=== PATIENT | male | born 1940 | race Caucasian/White ===

== ENCOUNTER 2022-03-25 16:34 | Observation (INO) | payer MEDICARE ==
[2022-03-25] MEDS ORDERED: Fentanyl 100 MCG/2 ML VIAL ONE ×2 (16:45→20:17)
[2022-03-25 17:14] LABS: #Eosinphils 0.1 thou/uL (0.0-0.7); #Monocytes 0.6 thou/uL (0.11-0.59); #Neutrophils 13.1 thou/uL (1.40-6.50); %Basophils 0.2 % (0.0-1.0); %Eosinophils 0.6 % (0.0-10.0); %Lymphocytes 6.4 % (21.0-51.0); %Monocytes 4.1 % (0.0-10.0); %Neutrophils 88.7 % (42.0-75.0); Hemoglobin 13.8 g/dL (14.0-18.0); Mean Corpuscular HGB CONC 33.6 g/dL (32.0-36.0); Mean Corpuscular Hemoglobin 33.6 pg (27.0-31.0); Mean Platelet Volume 7.5 fL (7.4-10.4); Platelet Count 242 thou/uL (130-400); Red Blood Cell (RBC) Count 4.11 mill/uL (4.70-6.10); White Blood Cell (WBC) Count 14.8 thou/uL (4.8-10.8)
[2022-03-25 17:24] LABS: INR-International Normal Ratio 0.9; Prothrombin Time 12.3 sec (12.0-14.7)
[2022-03-25 17:25] LABS: PTT 26.5 sec (22.9-36.1)
[2022-03-25 17:40] LABS: ALT (SGPT) 16 U/L (8-55); AST (SGOT) 27 U/L (5-34); Albumin 3.8 g/dL (3.4-4.8); Alkaline Phosphatase 72 U/L (40-110); Anion Gap 18 mmol/L (10-20); BUN (Urea Nitrogen) 19 mg/dL (8.4-25.7); Bilirubin, Total 0.3 mg/dL (0.2-1.2); Calc. Creatinine Clearance 0 mL/min (70-130); Calcium 9.3 mg/dL (7.8-10.44); Carbon Dioxide 22 mmol/L (23-31); Chloride 99 mmol/L (98-107); Estimated GFR 68; Globulin 3.5 g/dL (2.4-3.5); Glucose 97 mg/dL (83-110); Potassium 4.4 mmol/L (3.5-5.1); Protein, Total 7.3 g/dL (5.8-8.1); Sodium 135 mmol/L (136-145)
[2022-03-25] MEDS ORDERED: Morphine 4 MG/ML VIAL ONE (18:00)
[2022-03-25 18:06] LABS: SARS-CoV-2 NAA Rapid Test DETECTED (NotDetected)
[2022-03-25] MEDS ORDERED: Ondansetron PF 4 MG/2 ML Vial IVP PRN (18:17)
[2022-03-25] MEDS ORDERED: Dextrose 50% Abboject 50 ML SYRINGE SLOW IVP PRN (18:17)
[2022-03-25] MEDS ORDERED: Ondansetron ODT 4 MG TAB PO PRN (18:17)
[2022-03-25] MEDS ORDERED: Dextrose 5% in Water 1,000 ML IV PRN (18:17)
[2022-03-25] MEDS ORDERED: Albuterol Sulfate 2.5 mg/3 ml Neb NEB PRN (18:20)
[2022-03-25] MEDS ORDERED: traMADol HCl 50 MG TAB PO PRN (18:20)
[2022-03-25] MEDS ORDERED: Morphine 2 MG/ML VIAL SLOW IVP PRN (18:21)
[2022-03-25] MEDS ORDERED: Acetaminophen 325 MG TAB PO SCH (18:30)
[2022-03-25] MEDS ORDERED: traMADol HCl 50 MG TAB PO SCH (18:30)
[2022-03-25] MEDS ORDERED: CEFAZOLIN 2 GM in Sodium Chloride 0.9% 100 ML IVPB SCH (18:30)
[2022-03-25] MEDS ORDERED: Ibuprofen 200 MG TAB PO SCH (18:30)
[2022-03-25] MEDS ORDERED: fentaNYL Citrate/PF 100 MCG/2 ML SYRINGE ONE (18:49)
[2022-03-25] MEDS ORDERED: Neomycin-Polymyxin 1 ML AMP ONE (19:17)
[2022-03-25] MEDS ORDERED: Bupivacaine PF 0.5% 30 ML VIAL ONE (19:21)
[2022-03-25] MEDS ORDERED: Bupivacaine/Epinephrine 0.25% 30 ML VIAL ONE (19:21)
[2022-03-25] MEDS ORDERED: Lidocaine 1% PF 5 ML VIAL ONE (19:44)
[2022-03-25] MEDS ORDERED: Ondansetron PF 4 MG/2 ML Vial ONE (19:44)
[2022-03-25] MEDS ORDERED: Dexamethasone 20 MG/5 ML VIAL ONE (19:44)
[2022-03-25] MEDS ORDERED: Succinylcholine 200 MG/10 ml SYRINGE FS ONE (19:44)
[2022-03-25] MEDS ORDERED: ePHEDrine 50 MG/ML VIAL ONE (19:44)
[2022-03-25] MEDS ORDERED: PROPOFOL 200 MG/20 ML VIAL ONE (19:44)
[2022-03-25] MEDS ORDERED: Phenylephrine 10 MG/ML VIAL ONE (19:44)
[2022-03-25] MEDS ORDERED: Promethazine HCl 25 MG/ML VIAL IM PRN (20:07)
[2022-03-25] MEDS ORDERED: Ondansetron HCl/PF 4 MG/2 ML Vial IVP PRN (20:07)
[2022-03-25] MEDS ORDERED: Promethazine HCl 25 MG/ML VIAL IVPB PRN (20:07)
[2022-03-25] MEDS ORDERED: Famotidine 20 MG TAB PO SCH (21:00)
[2022-03-26 00:01] VITALS: BMI 15.7
[2022-03-26] MEDS: CEFAZOLIN 2 GM in Sodium Chloride 0.9% 100 ML IVPB SCH ×2 (00:11→05:59)
[2022-03-26] MEDS ORDERED: Ondansetron ODT 4 MG TAB PO PRN (00:21)
[2022-03-26] MEDS ORDERED: Ondansetron PF 4 MG/2 ML Vial IVP PRN (00:21)
[2022-03-26] MEDS ORDERED: Dextrose 5% in Water 1,000 ML IV PRN (00:21)
[2022-03-26] MEDS ORDERED: Dextrose 50% Abboject 50 ML SYRINGE SLOW IVP PRN (00:21)
[2022-03-26] MEDS ORDERED: traMADol HCl 50 MG TAB PO PRN (00:23)
[2022-03-26] MEDS ORDERED: Morphine 2 MG/ML VIAL SLOW IVP PRN (00:23)
[2022-03-26] MEDS ORDERED: Albuterol Sulfate 2.5 mg/3 ml Neb NEB PRN (00:23)
[2022-03-26] MEDS: Ibuprofen 200 MG TAB PO SCH ×2 (00:29→09:29)
[2022-03-26] MEDS: Acetaminophen 325 MG TAB PO SCH ×2 (00:29→05:39)
[2022-03-26] MEDS: traMADol HCl 50 MG TAB PO SCH ×2 (00:30→05:39)
[2022-03-26 05:45] LABS: #Lymphocytes 0.4 thou/uL (1.20-3.40); #Monocytes 0.3 thou/uL (0.11-0.59); #Neutrophils 7.8 thou/uL (1.40-6.50); %Basophils 0.2 % (0.0-1.0); %Eosinophils 0.2 % (0.0-10.0); %Monocytes 3.3 % (0.0-10.0); %Neutrophils 91.4 % (42.0-75.0); Mean Corpuscular HGB CONC 32.9 g/dL (32.0-36.0); Mean Corpuscular Hemoglobin 33.3 pg (27.0-31.0); Mean Platelet Volume 6.9 fL (7.4-10.4); Platelet Count 216 thou/uL (130-400); RBC Distribution Width 12.9 % (11.5-14.5); Red Blood Cell (RBC) Count 3.29 mill/uL (4.70-6.10); White Blood Cell (WBC) Count 8.5 thou/uL (4.8-10.8)
[2022-03-26 05:55] LABS: Anion Gap 17 mmol/L (10-20); BUN (Urea Nitrogen) 20 mg/dL (8.4-25.7); Calc. Creatinine Clearance 36 mL/min (70-130); Calcium 8.7 mg/dL (7.8-10.44); Carbon Dioxide 18 mmol/L (23-31); Chloride 102 mmol/L (98-107); Estimated GFR 63; Glucose 161 mg/dL (83-110); Magnesium 1.6 mg/dL (1.6-2.6); Phosphorus 4.1 mg/dL (2.3-4.7); Potassium 4.5 mmol/L (3.5-5.1); Sodium 132 mmol/L (136-145)
[2022-03-26 11:55] VITALS: BP 120/64; TEMP 98.2
[2022-03-26] MEDS ORDERED: Famotidine 20 MG TAB PO SCH (21:00)
== END 2022-03-26 15:10 | disposition home or self-care (01) ==
LOC: ERS 16:34 → SDC/OP 20:31 → SURG A 22:39 → INTOOBSV 22:39
PROVIDERS: ADMIT Surgery; ATTEND Surgery
PROC: 0PBD0ZZ Excision of Left Humeral Head, Open Approach (ICD-10-PCS; principal; 2022-03-25)
DX: S42.292B Other displaced fracture of upper end of left humerus, initial encounter for open fracture (principal); G89.11 Acute pain due to trauma; I69.393 Ataxia following cerebral infarction; U07.1 COVID-19; S50.311A Abrasion of right elbow, initial encounter; F17.210 Nicotine dependence, cigarettes, uncomplicated; J44.9 Chronic obstructive pulmonary disease, unspecified; Z79.02 Long term (current) use of antithrombotics/antiplatelets; W22.8XXA Striking against or struck by other objects, initial encounter
CPT/HCPCS: 11012; 73030; 80048; 80053; 83735; 84100; 85025 ×2; 85610; 85730; 86850; 86900; 86901; 93005; 96374; 96375; 99285; U0002; 36415; G0390; J0690; J1100; J2270; J2370; J2405; J2704; J3010; J3490; S0020